=== PATIENT | male | born 1955 ===

== ENCOUNTER 2024-12-29 15:34 | Outpatient (AMB) | payer MEDICARE, SELFPAY | END 2024-12-29 15:40 | disposition home or self-care (01) | LOC: HO.HMGAL 15:34 | PROVIDERS: PCP Internal Medicine; Visit Provider Registered Nurse Emergency | DX: J30.89 Other allergic rhinitis (principal) | CPT/HCPCS: 95117; 95165 ==

== ENCOUNTER 2025-01-31 12:42 | Outpatient (AMB) | payer MEDICARE, SELFPAY | END 2025-01-31 12:42 | disposition home or self-care (01) | LOC: HO.HMGAL 12:42 | PROVIDERS: PCP Internal Medicine; Visit Provider Registered Nurse Emergency | DX: J30.89 Other allergic rhinitis (principal) | CPT/HCPCS: 95117; 95165 ==

== ENCOUNTER 2025-02-28 14:47 | Outpatient (AMB) | payer MEDICARE, SELFPAY | END 2025-02-28 14:49 | disposition home or self-care (01) | LOC: HO.HMGAL 14:47 | PROVIDERS: PCP Internal Medicine; Visit Provider Registered Nurse Emergency | DX: J30.89 Other allergic rhinitis (principal) | CPT/HCPCS: 95117; 95165 ==

== ENCOUNTER 2025-04-04 14:09 | Outpatient (AMB) | payer MEDICARE, SELFPAY | END 2025-04-04 14:09 | disposition home or self-care (01) | LOC: HO.HMGAL 14:09 | PROVIDERS: PCP Internal Medicine; Visit Provider Registered Nurse Emergency | DX: J30.89 Other allergic rhinitis (principal) | CPT/HCPCS: 95117; 95165 ==